=== PATIENT | male | born 1960 | race Caucasian/White ===

== ENCOUNTER → 2016-08-16 | Outpatient (CLI) | payer OTHER ==
[~2016-08-16] MED LIST: ASPI325T32 PO; DOCU-144 PO; ERGO8000 PO; FER325 PO; HYDR-905 PO; LYRI25 PO; PANT40TA4 PO; ULT50 PO
--- NOTE | 2016-08-16 12:27 | RADRPT ---
PROCEDURE: XR pelvis/left hip. CLINICAL INDICATION: Hip pain TECHNIQUE: AP pelvis/lateral left hip view available for review. COMPARISON: 07/14/2016 FINDINGS: There are bilateral total hip replacements. There is normal mineralization, architecture and alignment. There is no evidence of loosening of th e prosthesis. No fractures, dislocation or osseous lesions are identified. The joints are unremark able. There are normal soft tissues. IMPRESSION: Bilateral total hip replacements. Otherwise unremarkable examination. RPTAT: [facility] .Jayme Ramirez MD, Date Time Electronically viewed and signed by .Jayme Ramirez MD, on 08/16/2016 12:26 .B/
== END | disposition home or self-care (01) ==
LOC: HKI 09:28
PROVIDERS: ATTEND Orthopaedic Surgery
DX: Z47.1 Aftercare following joint replacement surgery (principal); Z96.642 Presence of left artificial hip joint
CPT/HCPCS: 73502; Z7500; G0463

== ENCOUNTER → 2016-10-16 | Outpatient (CLI) | payer OTHER ==
[~2016-10-16] MED LIST changes: +TRAM50TA2 PO; -ULT50 PO
--- NOTE | 2016-10-16 09:46 | RADRPT ---
PROCEDURE: XR Hip. CLINICAL INDICATION: Bilateral hip pain TECHNIQUE: AP and frog lateral views of the right and left hips were performed. COMPARISON: 08/16/2016 FINDINGS: Intact bilateral total hip prosthesis with anatomic articulation of the femoral and acetabular compo nents. No evidence of subchondral lucency or radiolucency surrounding the femoral acetabular compon ents to suggest loosening or hardware failure. The pelvis and sacrum are intact. 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 IMPRESSION: Intact bilateral total hip prosthesis with anatomic alignment. No fracture, dislocation, or evidenc e of hardware failure. RPTAT:AAJJ Physician Gayle Date Time Electronically viewed and signed by Physician Gayle on 10/16/2016 09:45 LYDIA/
== END | disposition home or self-care (01) ==
LOC: HKI 09:06
PROVIDERS: ATTEND Orthopaedic Surgery
DX: Z47.1 Aftercare following joint replacement surgery (principal); Z96.643 Presence of artificial hip joint, bilateral
CPT/HCPCS: 73523; Z7500; G0463